=== PATIENT | female | born 1940 | race Caucasian/White ===

== ENCOUNTER → 2019-12-29 | Outpatient (CLI) | payer MEDICARE, BC ==
[2019-12-29 19:10] LABS: Source, Urine Clean Catch
[2019-12-29 19:41] LABS: Bilirubin, Urine Neg (Neg); Blood, Urine Neg (Neg); Glucose Qualitative, Urine 4+ (Neg); Ketones, Urine 3+ (Neg); Leukocyte Esterase, Urine 1+ (Neg); Nitrite, Urine Neg (Neg); Protein, Urine Neg (Neg); Urobilinogen, Urine NORM (Normal)
[2019-12-29 19:58] LABS: Appearance, Urine Clear (Clear); Color, Urine Pale Yellow (P-Yellow)
[2019-12-29 20:00] LABS: Bacteria Few /hpf; Red Blood Cells, Urine 0-2 /hpf (0-2); Squamous Epithelial Cells Few /hpf (Few)
[2019-12-29 20:07] LABS: Creatinine, Urine Random 12.9 mg/dL (27.00-270.00)
[2019-12-29 20:10] LABS: Microalb/Creat Ratio UR, Rand 39.457 mg/g (0.000-30.000); Microalbumin, Random Urine 5.09 mg/L (0.000-20.000)
[2019-12-30 10:51] LABS: Candida species (DNA Probe) Positive (NEGATIVE); G. vaginalis (DNA Probe) Negative (NEGATIVE); T. vaginalis (DNA Probe) Negative (NEGATIVE)
== END | disposition home or self-care (01) ==
LOC: LAB SHORT 19:06 → LAB 19:06
PROVIDERS: Nurse Practitioner Family
DX: E11.65 Type 2 diabetes mellitus with hyperglycemia (principal); B37.3 Candidiasis of vulva and vagina; R30.0 Dysuria
CPT/HCPCS: 81001; 82043; 82570; 87086; 87480; 87510; 87660

== ENCOUNTER → 2020-01-25 | Outpatient (CLI) | payer MEDICARE, BC ==
[2020-01-25 15:01] LABS: Source, Urine Voided
[2020-01-25 18:18] LABS: Appearance, Urine Clear (Clear); Bilirubin, Urine Neg (Neg); Blood, Urine 1+ (Neg); Color, Urine Yellow (P-Yellow); Glucose Qualitative, Urine 4+ (Neg); Ketones, Urine 1+ (Neg); Leukocyte Esterase, Urine 1+ (Neg); Nitrite, Urine Neg (Neg); Protein, Urine Neg (Neg); Specific Gravity, Urine 1.025 (1.003-1.022); Urobilinogen, Urine NORM (Normal)
[2020-01-25 18:30] LABS: Bacteria Mod /hpf; Squamous Epithelial Cells Mod /hpf (Few)
[2020-01-26 09:10] LABS: Candida species (DNA Probe) Negative (NEGATIVE); G. vaginalis (DNA Probe) Negative (NEGATIVE); T. vaginalis (DNA Probe) Negative (NEGATIVE)
== END | disposition home or self-care (01) ==
LOC: LAB SHORT 14:59 → LAB 14:59
PROVIDERS: Nurse Practitioner Family
DX: B37.3 Candidiasis of vulva and vagina (principal); R30.0 Dysuria
CPT/HCPCS: 81001; 87086; 87480; 87510; 87660

== ENCOUNTER → 2020-01-27 | Outpatient (CLI) | payer MEDICARE, BC | END | disposition home or self-care (01) | LOC: LAB SHORT 15:46 → LAB 15:46 | DX: R30.0 Dysuria (principal) | CPT/HCPCS: 87086 ==

== ENCOUNTER → 2020-03-01 | Outpatient (CLI) | payer MEDICARE, BC ==
[2020-03-02 13:02] LABS: Candida species (DNA Probe) Negative (NEGATIVE); G. vaginalis (DNA Probe) Negative (NEGATIVE); T. vaginalis (DNA Probe) Negative (NEGATIVE)
[2020-03-05 14:09] LABS: HPV 16 Negative (Negative); HPV 18 Negative (Negative); HPV OTHER HR TYPES Negative (Negative)
== END | disposition home or self-care (01) ==
LOC: LAB 16:45 → LAB SHORT 16:45
PROVIDERS: Nurse Practitioner Family
DX: Z12.4 Encounter for screening for malignant neoplasm of cervix (principal); B37.3 Candidiasis of vulva and vagina
CPT/HCPCS: 87480; 87510; 87624; 87660; G0145

== ENCOUNTER → 2021-03-11 | Outpatient (CLI) | payer MEDICARE, BC | LOC: LAB 14:44 → LAB SHORT 14:44 | DX: D48.5 Neoplasm of uncertain behavior of skin (principal); C44.329 Squamous cell carcinoma of skin of other parts of face; C44.311 Basal cell carcinoma of skin of nose | CPT/HCPCS: 88305 ==

== ENCOUNTER → 2021-03-19 | Outpatient (CLI) | payer MEDICARE, BC | END | disposition home or self-care (01) | LOC: LAB SHORT 08:23 | DX: L57.8 Other skin changes due to chronic exposure to nonionizing radiation (principal) | CPT/HCPCS: 88305 ==

== ENCOUNTER → 2021-09-17 | Outpatient (CLI) | payer MEDICARE, BC | END | disposition home or self-care (01) | LOC: LAB SHORT 14:58 | DX: L57.0 Actinic keratosis (principal) | CPT/HCPCS: 88305 ==

== ENCOUNTER → 2022-03-18 | Outpatient (CLI) | payer OTHER, BC | END | disposition home or self-care (01) | LOC: PLD 11:29 → LAB SHORT 11:29 → LAB 11:29 | DX: C44.311 Basal cell carcinoma of skin of nose (principal) | CPT/HCPCS: 88305 ==